=== PATIENT | male | born 1975 | race Caucasian/White ===

== ENCOUNTER 2018-09-17 14:37 | Emergency (ER) | payer SELFPAY ==
[~2018-09-17] VITALS: Ht 180.3 cm; Wt 90.7 kg
[~2018-09-17 14:37] MED LIST: DEXT10TA23; LEXAPRO10 MG; LISI10TA2
[2018-09-17 14:53] VITALS: BP 148/93
[2018-09-17] MEDS ORDERED: LIDOCAINE 1% PF 2 ML VIAL. ONE (15:19)
[2018-09-17] MEDS ORDERED: LIDOCAINE 1% PF 2 ML VIAL. INJ ONE (15:30)
--- NOTE | 2018-09-17 15:52 | PHYS DOC ---
Past Medical History Past Medical History: No Pertinent History, Anxiety, Hypertension Additional Past Medical Histor: ADD Past Surgical History: No Surgical History Alcohol Use: None Drug Use: Methamphetamine Adult General Chief Complaint Chief Complaint: WOUND RECHECK/SUTURE REMOVAL HPI HPI Patient is a 43 year old male who presents with need for suture removal and wound recheck. Patient states approximately 9 days ago he was seen at [facility] he had 9 sutures placed after cutting his left thumb with a brand- new knife. He denies any fever, numbness, tingling, or weakness of the affected ear. He states that yesterday he noticed a small area of pus beginning to form near the end of laceration. He denies any drainage or bleeding from the sutures. He states that this area of pus grew significantly overnight. He denies any known injury since having the wound repair. He reports surrounding redness, warmth, and swelling at the laceration site. Review of Systems Review of Systems Constitutional: Denies fever or chills [] Musculoskeletal: Denies joint pain [] Integument: See HPI Neurologic: Denies focal weakness or sensory changes [] Complete systems were reviewed and found to be within normal limits, except as documented in this note. Current Medications Current Medications Current Medications Medications (Trade) Dose Ordered Sig/Lonnie Start Time Stop Time Status Last Admin Dose Admin Lidocaine HCl (Xylocaine-Mpf 1% 2ml Vial) 2 ml STK-MED ONCE 09/17/18 15:19 09/17/18 15:21 DC Allergies Allergies Allergies Coded Allergies Type Severity Reaction Last Updated Verified No Known Drug Allergies 09/01/13 No Physical Exam Physical Exam Constitutional: Well developed, well nourished, no acute distress, non-toxic appearance. [] HENT: Normocephalic, atraumatic, bilateral external ears normal, oropharynx moist, no oral exudates, nose normal. [] Eyes: conjunctiva normal, no discharge. [] Skin: Warm, dry, [address] distal to PIP of L thumb, edges are well approximated without drainage or dehiscence noted. There is a 1 cm diameter round pus filled area noted at the proximal end of the laceration site consistent with a suture abscess with surrounding erythema, warmth and 1+ edema noted Extremities: No cyanosis, no clubbing, ROM intact Neurologic: Alert and oriented X 3, normal motor function, normal sensory function, no focal deficits noted. [] Psychologic: Affect normal, judgement normal, mood normal. [] Current Patient Data Vital Signs Vital Signs Date Time Temp Pulse Resp B/P (MAP) Pulse Ox O2 Delivery O2 Flow Rate FiO2 09/17/18 14:53 98.1 104 16 148/93 (111) 98 Room Air 98.1 EKG EKG [] Radiology/Procedures Radiology/Procedures Suture Removal by me: 8 Sutures removed with tweezers and scissors without wound dehiscence Wound shows evidence of local suture infection, an 18g needle was inserted into the infected area and a moderate amount of pus and blood was expressed from the site. No foreign body, neurologic injury, vascular injury, open joint or tendon laceration. I SAW THE PATINET, REOCMMENDED REMVOE SUTURES AND DRAIN THE SUTURE ABSCESS. GIVE ABX. Course & Med Decision Making Course & Med Decision Making Pertinent Labs and Imaging studies reviewed. (See chart for details) [] Dragon Disclaimer Dragon Disclaimer This electronic medical record was generated, in whole or in part, using a voice recognition dictation system. Departure Departure Impression: Primary Impression: Infection involving suture with abscess Additional Impressions: Encounter for removal of sutures Infected finger laceration Disposition: HOME, SELF-CARE Condition: STABLE Referrals: NO PCP (PCP) Patient Instructions: Laceration Care, Adult, [id number], Suture Removal- Brief Additional Instructions: Fill prescriptions and use them as directed. Tylenol or ibuprofen as needed for pain/fever. Follow-up with your primary care doctor in 1-2 days if symptoms persist. Return to the ER symptoms worsen. Scripts Clindamycin Hcl (CLINDAMYCIN HCL) 150 Mg Capsule 450 MG PO TID for 7 Days, #63 CAP 0 Refills Prov: LEONEL CALDERON APRN 09/17/18 Problem Qualifiers Additional Impressions: Infected finger laceration Encounter type: initial encounter Qualified Codes: S61.219A - Laceration without foreign body of unspecified finger without damage to nail, initial encounter; L08.9 - Local infection of the skin and subcutaneous tissue, unspecified LEONEL CALDERON APRN Sep 17, 2018 15:52 TAMMIE CONROY MD Sep 17, 2018 16:47
[2018-09-17] MEDS ORDERED: CLIN150C14 PO (16:00)
== END 2018-09-17 16:07 | disposition home or self-care (01) ==
LOC: ER 14:37
DX: S61.012D Laceration without foreign body of left thumb without damage to nail, subsequent encounter (principal); L02.512 Cutaneous abscess of left hand; I10 Essential (primary) hypertension; W26.0XXD Contact with knife, subsequent encounter
CPT/HCPCS: 10060; 99283-25